=== PATIENT | female | born 1975 | race Caucasian/White ===

== ENCOUNTER 2017-01-24 09:10 | Emergency (ER) | payer OTHER ==
[2017-01-24 09:25] VITALS: BP 100/68
--- NOTE | 2017-01-24 10:03 | UC ---
Throat Pain/Nasal Joseluis HPI - HPI Summary HPI Summary: 11/04 sore throat x 3 days. getting worse today with mild rt ear pain. pt has noted white spots. no other sx. wants to make sure it is not strep. - History of Current Complaint Chief Complaint: UCRespiratory Stated Complaint: SORE THROAT Time Seen by Provider: 01/24/17 09:49 Hx Obtained From: Patient Hx Last Menstrual Period: 01/15/17 ?: No Onset/Duration: Gradual Onset, Lasting Days, Still Present, Worse Since Severity: Moderate Pain Intensity: 5 Cough: None Associated Signs & Symptoms: Positive: Dysphagia - pain. Negative: FB Sensation , Drooling, Wheezing, Hoarseness, Sinus Discomfort, Nasal Discharge, Fever, Vomiting, Rash - Allergies/Home Medications Allergies/Adverse Reactions: Allergies Allergy/AdvReac Type Severity Reaction Status Date / Time No Known Allergies Allergy Verified 01/26/17 12:09 Home Medications: Home Medications Ibuprofen TAB* [Advil TAB*] 400 mg PO Q6H PRN 01/24/17 [History Confirmed ] PMH/Surg Hx/FS Hx/Imm Hx Endocrine History: Thyroid Disease - Surgical History Surgical History: Yes Surgery Procedure, Year, and Place: abdominal hernia 2003 - Family History Known Family History: Negative: Cardiac Disease, Hypertension, Diabetes - Social History Alcohol Use: None Substance Use Type: None Smoking Status (MU): Never Smoked Tobacco Review of Systems Constitutional: Negative Skin: Negative Eyes: Negative ENT: Sore Throat, Ear Ache Respiratory: Negative Cardiovascular: Negative Gastrointestinal: Negative Neurological: Negative All Other Systems Reviewed And Are Negative: Yes Physical Exam Triage Information Reviewed: Yes Appearance: Well-Appearing, No Pain Distress, Well-Nourished Vital Signs: Initial Vital Signs Temp 97.6 F 01/24/17 09:17 Pulse 83 01/24/17 09:17 Resp 18 01/24/17 09:17 BP 100/68 01/24/17 09:17 Vital Signs Reviewed: Yes Eyes: Positive: Conjunctiva Clear. Negative: Discharge ENT: Positive: Hearing grossly normal, Pharyngeal erythema, TMs normal, Tonsillar swelling, Tonsillar exudate. Negative: Nasal congestion, Nasal drainage, Trismus, Muffled/hoarse voice Neck: Positive: Supple, Tenderness @, Enlarged Nodes @ Respiratory: Positive: Lungs clear, Normal breath sounds, No respiratory distress, No accessory muscle use Cardiovascular: Positive: RRR, No Murmur Musculoskeletal Exam: Normal Neurological: Positive: Alert, Muscle Tone Normal Psychological: Positive: Age Appropriate Behavior Skin Exam: Normal Throat Pain/Nasal Course/Dx - Differential Dx/Diagnosis Differential Diagnosis/HQI/PQRI: Otitis Media, Pharyngitis, Sinusitis, Tonsillitis, URI Provider Diagnoses: pharyngitis Discharge - Discharge Plan Condition: Stable Disposition: HOME Patient Education Materials: Pharyngitis (ED) Referrals: Kevin Everett MD [Primary Care Provider] - If Needed
== END 2017-01-24 10:07 | disposition home or self-care (01) ==
LOC: UCCORT 09:10
DX: J02.9 Acute pharyngitis, unspecified (principal); H92.01 Otalgia, right ear; E07.9 Disorder of thyroid, unspecified
CPT/HCPCS: 87651; 99211; G0463

== ENCOUNTER 2017-01-26 12:02 | Emergency (ER) | payer OTHER ==
[2017-01-26 12:11] VITALS: BP 109/75
[2017-01-26] MEDS ORDERED: Ibuprofen ADULT LIQ* 600 MG/30 ML UDC PO ONE (13:08)
--- NOTE | 2017-01-26 13:31 | ED ---
Throat Pain/Nasal Congestion - HPI Summary HPI Summary: Pt here w/ ST x 5 days. Was seen on day [address] - rapid strep neg. Reports ST, pain and swelling w/ dysphagia - progressively worsening. Tried drinking hot tea yesterday w/ some relief. Ear pain B/L, GUERRERO, neck pain/throat area. Denies fever, chills, nasal congestion, chest pain, N/V/D, rash. No h/o strep or mono and no known sick contacts. Did not take medications prior to arrival today as she wanted me to see her full sx and her be able to report all areas of concern in detail. Does admit her stomach felt off w/ child moving around on her this morning. - History of Current Complaint Chief Complaint: EDThroatPain Time Seen by Provider: 01/26/17 12:30 Hx Obtained From: Patient - Allergies/Home Medications Allergies/Adverse Reactions: Allergies Allergy/AdvReac Type Severity Reaction Status Date / Time No Known Allergies Allergy Verified 01/26/17 12:09 PMH/Surg Hx/FS Hx/Imm Hx Previously Healthy: Yes Endocrine/Hematology History: Reports: Hx Thyroid Disease - takes levothyroxine - Surgical History Surgery Procedure, Year, and Place: abdominal hernia 2003 - Immunization History Date of Tetanus Vaccine: Unk Date of Influenza Vaccine: None, philosphically opposed Infectious Disease History: No Infectious Disease History: Denies: Hx Hepatitis, Hx Human Immunodeficiency Virus (HIV), Hx of Known/ Suspected MRSA, History Other Infectious Disease, Traveled Outside the [place] in Last 30 Days - Family History Known Family History: Positive: None - Social History Occupation: Employed Part-time - house keeping (self-employed) Lives: With Family Alcohol Use: Occasionally Hx Substance Use: No Substance Use Type: Reports: None Hx Tobacco Use: No Smoking Status (MU): Never Smoked Tobacco Review of Systems Constitutional: Negative Negative: Fever, Chills, Fatigue Eyes: Negative Positive: Sore Throat, Ear Ache. Negative: Dental Pain, Nasal Discharge Cardiovascular: Negative Negative: Palpitations, Chest Pain Respiratory: Negative Negative: Shortness Of Breath, Cough Gastrointestinal: Other - see HPI Negative: Vomiting, Diarrhea, Nausea Positive: no symptoms reported Musculoskeletal: Other - see HPI Skin: Negative Neurological: Other - see HPI Psychological: Normal All Other Systems Reviewed And Are Negative: Yes Physical Exam Triage Information Reviewed: Yes Vital Signs On Initial Exam: Initial Vitals Temp Pulse Resp BP Pulse Ox 99.3 F 88 18 109/75 97 01/26/17 12:09 01/26/17 12:09 01/26/17 12:09 01/26/17 12:09 01/26/17 12:09 Vital Signs Reviewed: Yes Appearance: Positive: Well-Appearing, Well-Nourished, Pain Distress - mild w/ swallowing Skin: Positive: Warm, Dry - no rash Head/Face: Positive: Normal Head/Face Inspection Eyes: Positive: Normal, EOMI, Conjunctiva Clear. Negative: Conjunctiva Inflammed, Discharge ENT: Positive: Hearing grossly normal, TMs normal, Tonsillar swelling, Tonsillar exudate. Negative: Nasal congestion, Nasal drainage, Trismus, Muffled /hoarse voice Dental: Negative: Abscess @ Neck: Positive: Supple, Tenderness @ - anterior cc and submandibular glands, Enlarged Nodes @ Respiratory/Lung Sounds: Positive: Clear to Auscultation, Breath Sounds Present. Negative: Rales, Rhonchi, Stridor, Wheezes Cardiovascular: Positive: Normal, RRR, S1, S2. Negative: Murmur, Rub Abdomen Description: Positive: Nontender - feels "different" over upper abdomen , No Organomegaly, Soft Musculoskeletal: Positive: Normal, Strength/ROM Intact - no neck stiffness and NTTP Neurological: Positive: Normal, Sensory/Motor Intact, Alert, Oriented to Person Place, Time, CN Intact II-III Psychiatric: Positive: Normal Diagnostics - Vital Signs Vital Signs Temp Pulse Resp BP Pulse Ox 01/26/17 12:45 99.3 F 88 18 109/75 98 01/26/17 12:09 99.3 F 88 18 109/75 97 - Laboratory Lab Statement: Any lab studies that have been ordered have been reviewed, and results considered in the medical decision making process. Re-Evaluation - Re-Evaluation First Eval Change: Improved - TOOK THE EDGE OFF OF ST AND BODY ACHES EENT Course/Dx - Course Course Of Treatment: Pt presents w/ 5 days h/o ST w/ dysphagia. Inital rapid strep neg. Repeated today and negative. [place] spot orderd as well - neg. No fever , chills. Suspect viral pharyngitis but will send throat cx for full testing. Discussed starting anbx vs not - pt would like to start and f/u w/ PCP for cx results. Advised supportive care over the next 2 - 5 days. Follow-up with PCP if sx persist or worsen. If trouble breathing or swallowing, return to ED. - Diagnoses Provider Diagnoses: Pharyngitis Discharge - Discharge Plan Condition: Stable Disposition: HOME Prescriptions: Amoxicillin PO (*) [Amoxicillin 500 MG CAP*] 500 mg PO Q12H #20 cap Patient Education Materials: Pharyngitis (ED) Referrals: Kevin Everett MD [Primary Care Provider] - Additional Instructions: You appear to have viral pharyngitis. This may be managed with rest, fluids, ibuprofen alternating with acetaminophen and salt water gargles. If your symptoms worsen instead of improve over the next 2-5 days, follow-up with PCP. *If you develop fever, neck stiffness, trouble breathing or swallowing, return to ED NOTE: An additional culture was sent in to lab. Check with your PCP for results.
[2017-01-26 14:29] LABS: Manual Entry Verification AS; Mono Internal Control QC Line Present; Mono Kit Lot# 7010011
== END 2017-01-26 15:30 | disposition home or self-care (01) ==
LOC: ED 12:02
DX: J02.9 Acute pharyngitis, unspecified (principal); E07.9 Disorder of thyroid, unspecified
CPT/HCPCS: 36415; 86308; 87651; 99282; A9270-GY

== ENCOUNTER 2017-08-11 17:16 | Emergency (ER) | payer OTHER ==
[2017-08-11 18:55] VITALS: BP 114/81
[2017-08-11] MEDS ORDERED: Ibuprofen TAB* 600 MG PO ONE (19:50)
--- NOTE | 2017-08-11 19:55 | UC ---
Respiratory Complaint HPI - HPI Summary HPI Summary: 41 yo female with cough and myalgias z 2 days chest feels tight feverish chills no runny nose - History of Current Complaint Chief Complaint: UCRespiratory Stated Complaint: UPPER RESP/COUGH Time Seen by Provider: 08/11/17 19:26 Hx Obtained From: Patient Hx Last Menstrual Period: 01/15/17 Onset/Duration: Sudden Onset, Lasting Days Severity Initially: Moderate Severity Currently: Moderate Pain Intensity: 8 Pain Scale Used: 0-10 Numeric Character: Cough: Nonproductive Associated Signs And Symptoms: Positive: Fever, Chills, Nasal Congestion, Sinus Discomfort - Allergies/Home Medications Allergies/Adverse Reactions: Allergies Allergy/AdvReac Type Severity Reaction Status Date / Time No Known Allergies Allergy Verified 08/11/17 18:55 PMH/Surg Hx/FS Hx/Imm Hx Previously Healthy: Yes Respiratory History: Bronchitis - Surgical History Surgical History: Yes Surgery Procedure, Year, and Place: abdominal hernia 2003 - Family History Known Family History: Positive: Hypertension - Social History Alcohol Use: Rare Substance Use Type: None Smoking Status (MU): Never Smoked Tobacco Review of Systems Constitutional: Fever, Chills, Fatigue Skin: Negative Eyes: Negative ENT: Negative Respiratory: Cough Cardiovascular: Negative Gastrointestinal: Negative Genitourinary: Negative Motor: Negative Neurovascular: Negative Musculoskeletal: Myalgia Neurological: Headache Psychological: Negative Is Patient Immunocompromised?: No All Other Systems Reviewed And Are Negative: Yes Physical Exam Triage Information Reviewed: Yes Appearance: Well-Appearing, No Pain Distress, Well-Nourished Vital Signs: Initial Vital Signs Temp 98.5 F 08/11/17 18:51 Pulse 90 08/11/17 18:51 Resp 18 08/11/17 18:51 BP 114/81 08/11/17 18:51 Pulse Ox 97 08/11/17 18:51 Vital Signs Reviewed: Yes ENT: Positive: Hearing grossly normal, Pharynx normal, Uvula midline. Negative : Nasal congestion, Nasal drainage, Tonsillar swelling, Tonsillar exudate, Trismus, Muffled voice, Hoarse voice, Dental tenderness Dental Exam: Normal Neck: Positive: Supple, Nontender, No Lymphadenopathy Respiratory: Positive: Chest non-tender, Lungs clear, Normal breath sounds, No respiratory distress Cardiovascular: Positive: RRR, No Murmur Musculoskeletal: Positive: ROM Intact, No Edema Neurological: Positive: Alert Psychological Exam: Normal Skin Exam: Normal UC Diagnostic Evaluation - Laboratory Pertinent Lab Values Are: WNL Except: - influenza b (+) O2 Sat by Pulse Oximetry: 97 - normal/not hypoxic Respiratory Course/Dx - Differential Dx/Diagnosis Provider Diagnoses: influenza B Discharge - Discharge Plan Condition: Stable Disposition: HOME Prescriptions: Oseltamivir CAP* [Tamiflu CAP*] 75 mg PO BID #10 cap Patient Education Materials: Influenza (ED) Referrals: No Primary Care Phys,NOPCP [Primary Care Provider] -
== END 2017-08-11 20:09 | disposition home or self-care (01) ==
LOC: UCCORT 17:16
DX: J10.1 Influenza due to other identified influenza virus with other respiratory manifestations (principal)
CPT/HCPCS: 87502; 99212; A9270-GY; G0463